=== PATIENT | female | born 1960 | race Caucasian/White ===

== ENCOUNTER 2019-04-12 12:06 | Day surgery (SDC) | payer BC ==
[2019-04-11 18:19] VITALS: BMI 25.6
[2019-04-12] MEDS ORDERED: PROPOFOL 20 ML ONE (15:24)
[2019-04-12 15:45] VITALS: TEMP 98.1
[2019-04-12 16:11] VITALS: BP 112/69; PULSE 64
== END 2019-04-12 16:20 | disposition home or self-care (01) ==
LOC: FASU-ENDO 12:06
PROVIDERS: ATTEND Internal Medicine Gastroenterology
PROC: 0DJD8ZZ Inspection of Lower Intestinal Tract, Via Natural or Artificial Opening Endoscopic (ICD-10-PCS; principal; 2019-04-12 15:30)
DX: Z12.11 Encounter for screening for malignant neoplasm of colon (principal); K64.1 Second degree hemorrhoids